=== PATIENT | female | born 1965 | race Caucasian/White ===

== ENCOUNTER 2021-09-17 11:30 | Inpatient (IN) | payer OTHER, SELFPAY ==
[2021-09-17] VITALS (17 sets, daily range): BP systolic 109–140; BP diastolic 63–84; PULSE 95–121; RESP 15–25; TEMP 36.3–37.6; O2SAT 93–98; BMI 25.7
--- NOTE | 2021-09-17 11:50 | W.ED.ABDPA2 ---
HPI - Abdominal Pain General: Chief Complaint: Nausea/Vomiting/Diarrhea Stated Complaint: N/V, ABD PAIN Time Seen by Provider: 09/17/21 11:30 History of Present Illness: HPI narrative: 56-year-old female presents emergency room with abdominal pain nausea vomiting. She is not any hematocrit Kizzier melena. No hematemesis. She denies any dysuria urgency or frequency or flank pain. She denies any previous abdominal surgeries no previous colonoscopies. Localizes the pain to the left lower quadrant. Symptoms began about 3 days ago has waxed and waned but now seems to get a getting progressively worsening. She is not really noticed anything that relieves or worsens the symptoms. MD elicited complaint: abdominal pain Onset (ago): day(s) Pain Consistency: constant Location: LLQ Severity: moderate Quality: cramping Radiation: none Exacerbating factors: nothing Relieving factors: rest Associated Symptoms: Reports anorexia, bloating and GI cramping; Denies belching, change in bowel habits, change in stool character, chills, coffee ground emesis, constipation, diarrhea, dyspepsia, dysuria, excessive flatus, fever(s), heartburn, hematochezia, hematuria, hematemesis, fecal incontinence, loose stools, melena, nausea, poor appetite, syncope and vomiting Review of Systems Const: Denies: fever(s) or chills ENMT: Denies: throat pain, ear or mastoid pain, nasal discharge or nasal congestion Card: Denies: syncope Resp: Denies: dyspnea, productive cough or non-productive cough GI: Reports: bloating and GI cramping; Denies: nausea, vomiting, hematemesis, coffee ground emesis, heartburn, diarrhea, constipation, belching, excessive flatus, fecal incontinence, change in bowel habits, change in stool character, hematochezia or melena : Denies: dysuria or hematuria Skin/Breast: Denies: rash or pruritus Physical Exam Const: COMMON NORMALS: no acute distress GENERAL APPEARANCE: cooperative and comfortable ORIENTATION/CONSCIOUSNESS: Yes awake, Yes oriented to person, Yes oriented to place and Yes oriented to time HENMT: COMMON NORMALS: normocephalic, atraumatic and hearing grossly normal bilaterally HEAD & SCALP: normocephalic and atraumatic Neck/C-Spine: COMMON NORMALS: no JVD Resp: COMMON NORMALS: normal respiratory effort, No retractions, No use of accessory muscles and clear to auscultation bilaterally AUSCULTATION: clear to auscultation bilaterally Cardio: COMMON NORMALS: no JVD, regular rate, regular rhythm and No murmurs present (Cardio) RATE: regular rate RHYTHM: regular rhythm GI: AUSCULTATION: Yes Hypoactive bowel sounds present PALPATION: Yes Tenderness to palpation present (GI) Details: LLQ Extremity: COMMON NORMALS: normal to inspection, capillary refill normal, no clubbing, cyanosis or edema, no calf tenderness and no pedal edema Neuro: SENSORIUM/ORIENTATION: Yes oriented to person, Yes oriented to place and Yes oriented to time Skin: COMMON NORMALS: no rashes or lesions noted GENERAL SKIN EXAM: no rashes or lesions noted Course Vital Signs: Vital signs: Vital Signs Temperature 99.6 F 09/17/21 11:46 Pulse Rate 112 H 09/17/21 11:46 Respiratory Rate 16 09/17/21 12:56 Blood Pressure 140/82 09/17/21 11:46 Pulse Oximetry 93 09/17/21 12:56 MDM - Abdominal Pain MDM Narrative: Medical decision making narrative: Labs and imaging reviewed. Patient significantly hyponatremic and hypokalemic most concerning CT report reviewed discussed with Dr. Knapp and with Dr. Ross. Will consult hospitalist who will collect correction of electrolytes. Surgical consult based on CT report and abdominal clinical exam findings. Lab Data: Labs: Lab Results 09/17/21 09/17/21 09/17/21 11:56 11:56 11:56 WBC 11.2 10^3/uL H 10 ^3/uL (4.0-10.0) RBC 4.61 10^6/uL 10^6 /uL (4.1-5.3) Hgb 13.7 g/dL g/dL (11.5-15.3) Hct 37.1 % % (37.0-47.0) MCV 80.5 fl L fl (81-99) MCH 29.7 pg pg (28.0-34.0) MCHC 36.9 g/dL H g/dL (30.0-36.0) RDW 11.2 % L % (12.1-15.1) Plt Count 171 10^3/cmm 10^3 /cmm (130-400) MPV 10.4 fL fL (7.4-10.4) Neut % (Auto) 90.7 % % Lymph % (Auto) 3.1 % % Collier % (Auto) 5.7 % % Eos % (Auto) 0.0 % % Baso % (Auto) 0.3 % % Neut # (Auto) 10.12 10^3/uL H 1 0^3/uL (1.8-7.7) Lymph # (Auto) 0.4 10^3/uL L 10^ 3/uL (0.8-4.8) Collier # (Auto) 0.6 10^3/uL 10^3/ uL (0.2-0.9) Eos # (Auto) 0.0 10^3/uL 10^3/ uL (0.0-0.8) Baso # (Auto) 0.0 10^3/uL 10^3/ uL (0.0-0.1) Nucleated RBC % (a uto) 0 % % Nucleated RBCs # 0.0 /100WBC /100W BC PT 13.60 SECONDS SEC ONDS (12.1-14.9) INR 1.01 (0.8-1.2) APTT 30.2 SECONDS SECO NDS (23.9-36.7) Sodium 117 mmol/L L* mmo l/L (136-145) Potassium 2.9 mmol/L L mmol /L (3.5-5.1) Chloride 80 mmol/L L mmol/ L (98-107) Carbon Dioxide 21 mmol/L L mmol/ L (22-29) Anion Gap 18.9 (5-19) BUN 6 mg/dL mg/dL (6-20) Creatinine 0.4 mg/dL L mg/dL (0.5-0.9) GFR Calculation 164.5 mL/min H mL /min (90-130) Glucose 145 mg/dL H mg/dL (65-115) Calculated Osmolal ity 244 mOsm/kg L mOs m/kg (285-295) Calcium 8.4 mg/dL L mg/dL (8.5-10.5) Total Bilirubin 0.7 mg/dL mg/dL (0.15-1.2) AST 26 U/L U/L (0-32) ALT 34 U/L H U/L (0-33) Alkaline Phosphata se 68 IU/L IU/L (35-105) Total Protein 6.5 g/dL L g/dL (6.6-8.7) Albumin 3.4 g/dL L g/dL (3.5-5.2) Globulin 3.1 g/dL g/dL (1.3-4.6) Lipase Urine Color Urine Appearance Urine pH Ur Specific Gravit y Urine Protein Urine Glucose (UA) Urine Ketones Urine Blood Urine Nitrate Urine Bilirubin Urine Urobilinogen Ur Leukocyte Mila ase Urine RBC Urine WBC Ur Squamous Epith Cells Amorphous Sediment Urine Bacteria 09/17/21 09/17/21 11:56 12:01 WBC RBC Hgb Hct MCV MCH MCHC RDW Plt Count MPV Neut % (Auto) Lymph % (Auto) Collier % (Auto) Eos % (Auto) Baso % (Auto) Neut # (Auto) Lymph # (Auto) Collier # (Auto) Eos # (Auto) Baso # (Auto) Nucleated RBC % (a uto) Nucleated RBCs # PT INR APTT Sodium Potassium Chloride Carbon Dioxide Anion Gap BUN Creatinine GFR Calculation Glucose Calculated Osmolal ity Calcium Total Bilirubin AST ALT Alkaline Phosphata se Total Protein Albumin Globulin Lipase 8 U/L L U/L (13-60) Urine Color Yellow (Yellow) Urine Appearance Sl hazy (CLEAR) Urine pH 7 (5-7) Ur Specific Gravit y 1.010 (1.005-1.030) Urine Protein 1+ H (Negative) Urine Glucose (UA) Norm (Normal) Urine Ketones 2+ H (Negative) Urine Blood 3+ H (Negative) Urine Nitrate Negative (Negative) Urine Bilirubin Neg (Negative) Urine Urobilinogen Norm mg/dL mg/dL (Negative) Ur Leukocyte Mila ase Negative (Negative) Urine RBC 10-15 /hpf H /hpf (0-2) Urine WBC 5-10 /hpf H /hpf (0-5) Ur Squamous Epith Cells 15-25 /hpf H /hpf (0-5) Amorphous Sediment Not Reportable Urine Bacteria 1+ /hpf H /hpf (NONE) Discharge Plan Discharge Patient Disposition: Admitted As Inpatient Clinical Impression: Small bowel obstruction, Hypokalemia, Hyponatremia, Ischemia, bowel Condition: Stable Referrals: Eden Poe DO [Primary Care Provider] - Coding Level of Care Code ED Circle Beveler for Chg Fwd Exam Comprehensive
--- NOTE | 2021-09-17 12:05 | CT_ITS ---
WS: [id number] CT ABDOMEN AND PELVIS WITH CONTRAST HISTORY: Nausea and general abdominal pain for 4 days. TECHNIQUE: Imaging performed of the abdomen and pelvis with IV contrast. Single phase imaging of the abdomen. Coronal and sagittal reformats are submitted. All CT scans at [facility] use at [facility] one of these dose optimization techniques: automated exposure control; mA and/or kV adjustment per patient size (includes targeted exams where dose is matched to clinical indication); or iterative re construction. IV CONTRAST: Omnipaque 300; 95 mL IV. Oral contrast: Yes. DLP: 1450.1 mGy.cm COMPARISON: None available. Lower thorax: Lung bases are hyperexpanded from emphysema. 5 mm nodule at the medial RIGHT lung base. Heart is normal size. The distal esophagus is fluid-filled. There is a fluid-filled hiatal hernia in the stomach is dilated with fluid. Liver/biliary system: Normal size with no intrahepatic dilatation. Gallbladder: Normal. No gallstones or wall thickening. No pericholecystic fluid. Pancreas: Normal size pancreas and pancreatic duct. No adjacent inflammation. Spleen: Normal size spleen. No mass or infarct. Adrenal glands: Normal. Right kidney: Normal. Left kidney: Normal. Aorta: Mild atherosclerosis with no aneurysm. Lymphadenopathy: There are several small mesenteric and RIGHT lower quadrant lymph nodes. Free fluid: Small amount of free fluid in the pelvis. There is mesenteric edema and a small amount of fluid along the RIGHT paracolic gutter. GI tract: Acute inflammatory process in the RIGHT lower quadrant. Significant amount of edema with fl uid and a few small lymph nodes and abnormal loop of bowel. High density within this dilated fluid-fi lled loop of distal small bowel bowel. The largest component measures 12 mm which may be a calcificat ion. This is a very elongated abnormal loop of distal small bowel there are numerous fluid-filled loo ps of small bowel with wall thickening. There is at least a partial moderate small bowel obstruction. A dilated appendix as a separate structure is not identified. The colon is collapsed. Abdominal wall: Fat containing umbilical hernia. Pelvis: Urinary bladder is well distended. Small amount of free fluid is present within the pelvis. S everal small calcifications within the LEFT ovary. Bones: Unremarkable. CT/CT abdomen pelvis w con* [id number] IMPRESSION: 1. Abnormal loop of distal small bowel with wall thickening, edema and increas ed density which may be calcification. Moderate obstruction in the small bowel due to the abnormal distal loop. Then appendix as a separate structure is not i dentified. This could be acute appendicitis with an appendicolith and secondary findings of adjacent enteritis. The inflammatory changes are greater than norm ally seen for acute appendicitis and the small bowel loop is very elongated. Co nsider other etiologies of an abnormal distal small bowel such as acute inflamm ation of the Meckel's diverticulum, volvulus or neoplasm. Early changes of isch emia are suspected. Surgical evaluation strongly recommended. 2. There is extensive inflammation in the RIGHT lower quadrant with a small am ount of free fluid in the pelvis. Notified Dandre Grossman DO at 09/17/2021 12:45 PM. Not available. Message le ft for Dr. Grossman to review the report as soon as possible.
[2021-09-17] MEDS: iohexol 300 mg/mL 100 mL Btl IV (12:16)
[2021-09-17 12:18] LABS: Basophils % 0.3 %; Hematocrit 37.1 % (37.0-47.0); Hemoglobin 13.7 g/dL (11.5-15.3); Lymphocytes # 0.4 10^3/uL (0.8-4.8); Lymphocytes % 3.1 %; Mean Corpuscular HGB Conc 36.9 g/dL (30.0-36.0); Mean Corpuscular Hemoglobin 29.7 pg (28.0-34.0); Mean Corpuscular Volume 80.5 fl (81-99); Mean Platelet Volume 10.4 fL (7.4-10.4); Monocytes # 0.6 10^3/uL (0.2-0.9); Monocytes % 5.7 %; Neutrophils # 10.12 10^3/uL (1.8-7.7); Neutrophils % 90.7 %; Nucleated Red Blood Cells % 0 %; Platelet Count 171 10^3/cmm (130-400); Red Blood Count 4.61 10^6/uL (4.1-5.3); Red Cell Distribution Width 11.2 % (12.1-15.1); White Blood Count 11.2 10^3/uL (4.0-10.0)
[2021-09-17 12:34] LABS: Alanine Aminotransferase 34 U/L (0-33); Albumin Level 3.4 g/dL (3.5-5.2); Alkaline Phosphatase 68 IU/L (35-105); Anion Gap 18.9 (5-19); Aspartate Amino Transferase 26 U/L (0-32); Blood Urea Nitrogen 6 mg/dL (6-20); Calcium 8.4 mg/dL (8.5-10.5); Carbon Dioxide 21 mmol/L (22-29); Chloride 80 mmol/L (98-107); Globulin 3.1 g/dL (1.3-4.6); Glomerular Filtration Rate 164.5 mL/min (90-130); Glucose 145 mg/dL (65-115); Osmolality Calculated 244 mOsm/kg (285-295); Total Bilirubin 0.7 mg/dL (0.15-1.2); Total Protein 6.5 g/dL (6.6-8.7)
[2021-09-17] MEDS: ondansetron 2 mg/ML SDV 2 mL 4 MG IVP (12:53)
[2021-09-17] MEDS: morphine 4 mg/mL SDV 1 mL IVP (12:56)
[2021-09-17] MEDS: sodium chloride 0.9% 1,000 ML 999 ML IV (13:01)
[2021-09-17 13:02] LABS: Potassium 2.9 mmol/L (3.5-5.1); Sodium 117 mmol/L (136-145)
[2021-09-17 13:05] LABS: Add Urine Microscopic? YES; Bilirubin Urine Neg (Negative); Blood Urine 3+ (Negative); Glucose Urine UA Norm (Normal); Ketones Urine 2+ (Negative); Leukocyte Esterase Urine Negative (Negative); Nitrate Urine Negative (Negative); Protein Urine 1+ (Negative); Urine Appearance SL Hazy (CLEAR); Urine Color Yellow (Yellow); Urobilinogen Urine Norm (Negative); pH Urine 7 (5-7)
[2021-09-17 13:06] LABS: Add Urine Culture? No; Bacteria Urine 1+ /hpf; Squamous Epithelial Cell Urine 15-25 /hpf (0-5)
[2021-09-17] MEDS: LORazepam 2 mg/mL INJ 1 mL IVP (13:06)
[2021-09-17 13:16] LABS: Lipase 8 U/L (13-60)
[2021-09-17 13:21] LABS: INR 1.01 (0.8-1.2); Partial Thromboplastin Time 30.2 SECONDS (23.9-36.7)
[2021-09-17] MEDS: promethazine 25 mg/mL SDV 1 mL IM (13:29)
[2021-09-17] MEDS: piperacillin-tazobactam 3.375 GM in sodium chloride 0.9% (plus) 50 ML IV ×2 (13:29→20:47)
--- NOTE | 2021-09-17 13:42 | PC.PHAR ---
pts family verified the pts medications
[2021-09-17] MEDS: lidocaine 1% 5 ML in potassium chloride premix 100 ML 25 ML IV (13:44)
--- NOTE | 2021-09-17 13:51 | PC.NURSE ---
pt placed on continuous spo2, nibp, and cm.
[2021-09-17 14:10] LABS: Lactic Sepsis W/Reflex 1.7 mmol/L (0.5-2.2)
--- NOTE | 2021-09-17 14:22 | P.HP_ITS ---
Providers/Chief Complaint Primary Care Provider: Eden Poe DO Chief Complaint: N/V, ABD PAIN History of Present Illness Vicky Katz is a 56 year old female with no significant past medical history presented to the hospital with chief complaint recurrent nausea and vomiting. Son is at the bedside who has been giving me most of the information. Patient has been given morphine and Ativan she is very drowsy. She is curre ntly on 2 L nasal cannula. 200 cc of bilious content obtained when NG tube was placed. No active drainage noted in the container. Friday stating that her symptoms started on Friday which got worse over the weekend, she probably had more than 20 episodes of emesis. Low-grade fever was noticed. No diarrhea. No one else in the home is sick with similar symptoms no signs or symptoms of COVID-19. In the ER CT abdomen pelvis consistent with SBO and early changes of ischemic colon, lactic acid is normal, white count 11.2, on examination there is peritonitis signs mostly on lower quadrants no active guarding or rigidity noted however she had received opioids and Ativan She has been given Zosyn, IV fluids, Dr. Knapp has been consulted Patient never had EGD or colonoscopy before, no previous history of surgeries, no family history of colon cancer, father had small cell lung cancer, she is an corporate accountant by profession, has been leading a normal healthy life, does not smoke on daily basis Review of Systems General: Reports: ROS unobtainable due to medical condition (Patient received morphine and Ativan, not able to provide much review of sy) Medications/Allergies Home Medications Medication Instructions Recorded Confirmed Last Taken Type activated charcoal 500 mg PO ONCE 09/17/21 09/17/21 09/15/21 History cetirizine [All Day Allergy 10 mg PO DAILY PRN 09/17/21 09/17/21 Unknown History (cetirizine)] Allergies Allergy/AdvReac Type Severity Reaction Status Date / Time No Known Allergies Allergy Verified 09/17/21 11:46 PFSH Acute PFSH: Medical History Atypical chest pain Surgical History Hx of tonsillectomy Family History Other Family history non-contributory Social History Smoking and tobacco status: never smoked Alcohol intake: never Housing: House Vitals/I&O/Wt Last Vital Signs Temp 99.6 F 09/17/21 11:46 Pulse 108 H 09/17/21 13:52 Resp 22 H 09/17/21 13:52 BP 109/72 09/17/21 13:52 Pulse Ox 93 09/17/21 13:52 Weight last 48 hrs Weight 65.771 kg Physical Exam Narrative: EXAM NARRATIVE: Semi-Curry position Patient appears stated age Looks dehydrated Currently on 2 L Abdomen is nondistended, tender to touch periumbilical area lower quadrants however no active guarding or rigidity noted Patient is arousable to verbal command Nonfocal neuro exam Drowsy On 2 L nasal cannula Sinus tachycardia Blood pressure stable Data : 09/17/21 11:56 09/17/21 11:56 A&P Assessment and plan (1) Small bowel obstruction: Status: Acute (2) Hypokalemia: Status: Acute (3) Hyponatremia: Status: Acute (4) Ischemia, bowel: Status: Acute Additional A&P Information Small bowel obstruction Dr. Knapp consulted Fluid aroundRight paracolic gutter, mesenteric lymphadenopathy, calcification left ovary, fat-containing umbilical hernia Hypokalemia, hyponatremia related to recurrent emesis N.p.o. NG to suction 300 cc obtained Continue IV fluids Patient looks dehydrated, sinus tachycardia noted Acute appendicitis not ruled out Continue Zosyn Full code N.p.o. DVT prophylaxis SCDs Attestations Medical Necessity Statement*: More than 2 midnights anticipated Time Spent in Patient Care: Greater than 35 minutes Coding Level of Care Code Acute Strainer Cleaner for [facility] Fwd Diagnoses Small bowel obstruction K56.609 Hypokalemia E87.6 Hyponatremia E87.1 Ischemia, bowel K55.9
--- NOTE | 2021-09-17 14:23 | XR_ITS ---
WS: [id number] PORTABLE CHEST HISTORY: ng tube placement COMPARISON: [id number] Nasogastric tube is been placed. The proximal port is just below the GE junction. The distal tip is i n the LEFT upper abdomen. Mild interstitial thickening throughout both lungs. Patient is rotated to the RIGHT. No pneumothorax or pleural effusion. Cardiac size: Normal. Mediastinum/Aorta: Mild increase in soft tissue in the RIGHT paratracheal region is probably due to t he position and semiupright projection. No osseous abnormality seen. XR/XR chest 1V portable [id number] IMPRESSION: 1. Interval placement of nasogastric tube in good position. 2. No pneumonia. Chronic emphysema.
[2021-09-17] MEDS: sodium chloride 0.9% 1,000 ML 100 ML IV (15:18)
--- NOTE | 2021-09-17 15:18 | PC.NURSE ---
WHILE AT BEDSIDE PT IS IN NAD. PT DENIES ANY NEEDS AT THIS TIME.
--- NOTE | 2021-09-17 16:44 | P.CONIM_ITS ---
Providers/Reason For Consult Consulting Physician/Specialty*: General Surgery Raymundo Knapp MD Reason for Consult*: Abdominal pain, abnormal CAT scan. Attending Physician: Chasidy Costa MD Primary Care Provider: Eden oPe DO History of Present Illness History of Present Illness Vicky Katz is a 56 year old female who says she was in her normal state of health until Friday night (3 days ago) when she awoke with generalized abdominal pain and started having multiple episodes of nausea/vomiting. The symptoms continued the following day. She never did see any evidence of hematemesis. She says her friend had recommended she drink some activated charcoal because that helps me when I get sick. She did that but it did not help her symptoms. Her stool turned dark in color as a result but she continued to have primarily nausea and vomiting symptoms. She seems to think the last time she vomited was last night, but she says the abdominal pain became more intense today. She says it is primarily in the lower abdomen now. She told me she has not had any fevers or chills, but the hospitalist indicated there may have been a low-grade fever. She has not had a bowel movement for a couple of days but says she continues to pass small amounts of flatus. She has no history of abdominal surgery. She has no family history of intestinal neoplasia or inflammatory bowel disease. She has not swallowed any foreign bodies that she knows of. The patient came to the emergency room today and a CAT scan showed evidence of an inflammatory process in the lower abdomen/right lower quadrant. There is a long tubular structure with what was felt to be a calcification within it, but it was not felt to represent the appendix. The radiologist felt that there may be some early evidence of bowel ischemia and the inflammatory change was greater than that expected with appendicitis. Review of Systems General: Reports: 10 or more systems reviewed and unremarkable except in HPI and below Const: Denies: fever(s) or chills GI: Reports: abdominal pain, nausea and vomiting; Denies: hematemesis Medications/Allergies Home Medications Medication Instructions Recorded Confirmed Last Taken Type activated charcoal 500 mg PO ONCE 09/17/21 09/17/21 09/15/21 History cetirizine [All Day Allergy 10 mg PO DAILY PRN 09/17/21 09/17/21 Unknown History (cetirizine)] Allergies Allergy/AdvReac Type Severity Reaction Status Date / Time No Known Allergies Allergy Verified 09/17/21 11:46 Current Medications Generic Name Dose Route Start Last Admin Trade Name Po PRN Reason Stop Dose Admin Lidocaine HCl 5 ml/ Potassium 105 mls @ 25 mls/hr 09/17/21 13:15 09/17/21 13:44 Chloride IV 09/17/21 21:14 25 mls/hr Q4H CLAUDIA Administration PFSH Acute PFSH: Medical History Atypical chest pain Surgical History Hx of tonsillectomy Family History Other Family history non-contributory Social History Smoking and tobacco status: never smoked Alcohol intake: never Housing: House Vitals/I&O/Wt Last Vital Signs Temp 99.6 F 09/17/21 11:46 Pulse 108 H 09/17/21 13:52 Resp 22 H 09/17/21 13:52 BP 109/72 09/17/21 13:52 Pulse Ox 93 09/17/21 13:52 Weight last 48 hrs Weight 145 lb Physical Exam Narrative: EXAM NARRATIVE: The patient was encountered in her room in the emergency department. She has a nasogastric tube and Fraire catheter in place. She does not appear to be in any acute distress. She does seem a little bit sedated after receiving pain medication and sedation. Her son is at her bedside. The pupils seem equal. No carotid bruits are heard. The lungs are clear. The heart seems regular but she is borderline tachycardic. The abdomen is soft but has very few bowel sounds. She does have most of her tenderness in the lower abdomen and perhaps even more so to the right side of midline. The extremities reveal no edema. Neurologically the patient appears to be grossly intact. Urinary Catheter Management^: Fraire: Cath Placed During This Visit: yes Urinary Catheter Date of Insertion: 09/17/21 Urinary Catheter Time of Insertion: 16:18 Data Imaging^: CT Abd/Pel: Radiologist's impression: CT abdomen/pelvis 09/17/2021 IMPRESSION: 1. Abnormal loop of distal small bowel with wall thickening, edema and increased density which may be calcification. Moderate obstruction in the small bowel due to the abnormal distal loop. Then appendix as a separate structure is not identified. This could be acute appendicitis with an appendicolith and secondary findings of adjacent enteritis. The inflammatory changes are greater than normally seen for acute appendicitis and the small bowel loop is very elongated. Consider other etiologies of an abnormal distal small bowel such as acute inflammation of the Meckel's diverticulum, volvulus or neoplasm. Early changes of ischemia are suspected. Surgical evaluation strongly recommended. 2. There is extensive inflammation in the RIGHT lower quadrant with a small amount of free fluid in the pelvis. A&P Assessment and plan (1) Abnormal CT scan, pelvis: CAT scan reviewed. I agree that the CAT scan has somewhat of an abnormal appearance to it. If she does have an appendicolith within the appendix, it somewhat difficult to see the structure connecting with the cecum and it appears to be quite lengthy, extending across the midline to the left side. I suspect the patient has more of an ileus as opposed to an obstructive process. I told the patient I am not absolutely certain what she/we are dealing with here. We have discussed appendicitis, Meckel's diverticulitis, inflammatory bowel disease, etc. We discussed conservative management versus surgical exploration to make sure we know what is going on and to treat anything that we can surgically. We discussed surgical risks of bleeding, infection, internal organ injury, possible need for removal of structures, etc. The patient seems to understand and would like to proceed with surgical exploration tonight. The patient has been n.p.o. today and already has a nasogastric tube and Fraire catheter in place. I am going to make arrangements for urgent exploration tonight. Status: Acute (2) Right lower quadrant pain: Status: Acute (3) Ischemia, bowel: Possible, based on CAT scan findings, but the patient's lactate is normal. Status: Acute (4) Hyponatremia: Status: Acute Consult Attestations Medical Necessity Statement: See admitting service's notation. Coding Level of Care Code Acute Retail Support Specialist for [facility] Diagnoses Abnormal CT scan, pelvis R93.5 Right lower quadrant pain R10.31 Ischemia, bowel K55.9 Hyponatremia E87.1
--- NOTE | 2021-09-17 17:10 | ANES.PREANE2 ---
Pre-Anesthetic Assessment Pre-Anesthetic Assessment: Height/Weight: Height 1.6 m Weight 65.771 kg Temp Pulse Resp BP Pulse Ox 99.6 F 108 H 22 H 109/72 93 09/17/21 11:46 09/17/21 13:52 09/17/21 13:52 09/17/21 13:52 09/17/21 13:52 Was Beta Stephanie taken within 24 hours: N/A Was Clonidine taken within 24 hours: N/A Social: Social History: Tobacco and No alcohol Exam: Pre-Anes Outpt Exam: alert, oriented x 3, clear to auscultation bilaterally and regular rate & rhythm Airway: Submandibular: WNL Cervical ROM: WNL MP: 2 Dentition: False History/ROS: No significant history except as noted Pulmonary: Pulmonary: None reported CV/HEM: CV/HEM: None reported Comments: METS > 4 : : None reported Hepatic: Hepatic: None reported GI: GI: None reported Comments: SBO Metabolic: Metabolic: None reported Musc/skel: Musc/skel: None reported Neuropsych: Neuropsych: None reported Anesthetic Plan: ASA status: 2E Anesthesia: Anesthesia Evaluation and General Other: Risk and benefits discussed. Plan GETA, RSI Risk of > 500 ml blood loss (7ml/kg in children): No Other Pertinent Information: Hypokalemia Hypochloremia S/P 20 mEq infusion of potassium in 1 liter D5 NSS Medications/Allergies Current Medications: Current Medications Generic Name Dose Route Start Last Admin Trade Name Freq PRN Reason Stop Dose Admin Lidocaine HCl 5 ml / Potassium 105 mls @ 25 mls/ hr 09/17/21 13:15 09/17/21 13:44 Chloride IV 09/17/21 21:14 25 mls/hr Q4H CLAUDIA Administration PFSH Anesthesia PFSH: Medical History Atypical chest pain Surgical History Hx of tonsillectomy Family History Other Family history non-contributory Social History Smoking and tobacco status: never smoked Alcohol intake: never Housing: House Data Anesthesia CBC & Chem 7: 09/17/21 11:56 09/17/21 11:56 Other Labs: Laboratory Results - last 48 hr 09/17/21 09/17/21 09/17/21 11:56 11:56 11:56 WBC 11.2 H RBC 4.61 Hgb 13.7 Hct 37.1 MCV 80.5 L MCH 29.7 MCHC 36.9 H RDW 11.2 L Plt Count 171 MPV 10.4 Neut % (Auto) 90.7 Lymph % (Auto) 3.1 Kinney % (Auto) 5.7 Eos % (Auto) 0.0 Baso % (Auto) 0.3 Neut # (Auto) 10.12 H Lymph # (Auto) 0.4 L Kinney # (Auto) 0.6 Eos # (Auto) 0.0 Baso # (Auto) 0.0 Nucleated RBC % (auto) 0 Nucleated RBCs # 0.0 PT 13.60 INR 1.01 APTT 30.2 Sodium 117 L* Potassium 2.9 L Chloride 80 L Carbon Dioxide 21 L Anion Gap 18.9 BUN 6 Creatinine 0.4 L GFR Calculation 164.5 H Glucose 145 H Calculated Osmolality 244 L Lactic Acid Calcium 8.4 L Total Bilirubin 0.7 AST 26 ALT 34 H Alkaline Phosphatase 68 Total Protein 6.5 L Albumin 3.4 L Globulin 3.1 Lipase Urine Color Urine Appearance Urine pH Ur Specific [place] Urine Protein Urine Glucose (UA) Urine Ketones Urine Blood Urine Nitrate Urine Bilirubin Urine Urobilinogen Ur Leukocyte Esterase Urine RBC Urine WBC Ur Squamous Epith Cells Amorphous Sediment Urine Bacteria 09/17/21 09/17/21 09/17/21 11:56 12:01 13:43 WBC RBC Hgb Hct MCV MCH MCHC RDW Plt Count MPV Neut % (Auto) Lymph % (Auto) Kinney % (Auto) Eos % (Auto) Baso % (Auto) Neut # (Auto) Lymph # (Auto) Kinney # (Auto) Eos # (Auto) Baso # (Auto) Nucleated RBC % (auto) Nucleated RBCs # PT INR APTT Sodium Potassium Chloride Carbon Dioxide Anion Gap BUN Creatinine GFR Calculation Glucose Calculated Osmolality Lactic Acid 1.7 Calcium Total Bilirubin AST ALT Alkaline Phosphatase Total Protein Albumin Globulin Lipase 8 L Urine Color Yellow Urine Appearance Sl hazy Urine pH 7 Ur Specific [place] 1.010 Urine Protein 1+ H Urine Glucose (UA) Norm Urine Ketones 2+ H Urine Blood 3+ H Urine Nitrate Negative Urine Bilirubin Neg Urine Urobilinogen Norm Ur Leukocyte Esterase Negative Urine RBC 10-15 H Urine WBC 5-10 H Ur Squamous Epith Cells 15-25 H Amorphous Sediment Not Reportable Urine Bacteria 1+ H Cardiac Studies: No Data to Display
--- NOTE | 2021-09-17 17:12 | PC.NURSE ---
INFORMED FROM [facility] VIA PC TO LEAVE SECOND DOSE OF ZOYSN FOR SURGERY TO DECIDE WHEN TO ADM.
--- NOTE | 2021-09-17 18:07 | ANE.PACU2 ---
Inpatient post-anesthesia follow up: Vital signs: Temperature 99.6 F Pulse Rate 119 Respiratory Rate 23 Blood Pressure 120/83 Pulse Oximetry 96 Oxygen Delivery Me thod Nasal Cannula Oxygen Flow Rate 2 Fraction of Inspir ed Oxygen
--- NOTE | 2021-09-17 18:29 | SUR.PREOP ---
1750 PT TO OPS BAY 8 PT AWAKE ALERT NG CLAMPED TAPED TO RT NARE, IV TO LT AC#18 WITH NS, WITH GOOD BLOOD RETURN AND FLUSHED EASILY RUNNING PER GRAVITY AT FAST RATE PER DR SILVERIO'S VERBAL ORDER. ABD SOFT , BILAT SCDS PLACED , PT LOWER DENTURES OUT AND IN DENTURE CUP, UPPERS ARE REAL. SIDE RAILS UP X 2 BRAKE ON. 1806 FAMILY LEFT SHORTLY AFTER ARRIVAL, PT TO OR PER CART.
--- NOTE | 2021-09-17 19:03 | P.OP_ITS ---
Operative Report Date of procedure: September 17, 2021 Pre-op Diagnosis: Pelvic inflammatory process, possible bowel ischemia. Post-op Diagnosis: Gangrenous, perforated appendicitis. Procedure Done: Exploratory laparotomy with appendectomy. Specimens removed/disposition: 1. Aerobic and anaerobic cultures of peritoneal fluid. 2. Appendix. Surgeon: Raymundo Knapp Anesthesia: General Estimated blood loss (mL): 10 Complications: None. Condition: stable Disposition: PACU Procedure: The patient was brought to the operating room and was placed in a supine position on the operating room table. A Fraire catheter and nasogastric tube had already been inserted preoperatively. General endotracheal anesthesia was induced. The abdomen was prepped and draped in a sterile fashion. A midline incision was carried out from the lower epigastrium around the umbilicus into the lower midline. Cautery was used to divide the subcutaneous tissue and the midline fascia and the peritoneal cavity was entered. Some light yellow purulent appearing peritoneal fluid was encountered. Palpation into the pelvis revealed a early phlegmon near the midline. After some of this had been broken up with blunt dissection the peritoneal fluid was sent for aerobic and anaerobic cultures with Gram stain. The abdomen was briefly irrigated. An Jason wound retractor was used for exposure and wound protection. The cecum was identified by palpation and the terminal ileum was inspected. Other than having some inflammatory peel and some hemorrhagic changes no obvious abnormalities were found. The appendix was found posteriorly extending towards the left side of the abdomen. It was clearly gangrenous and was perforated near the tip. The appendix was mobilized using blunt dissection with some cautery to maintain hemostasis. The base of the appendix appeared relatively healthy and was ligated with 2 separate ligatures of 2-0 Vicryl. The gangrenous appendix wa s excised. The appendiceal stump was briefly cauterized and the cecum was returned to the abdomen. All quadrants were then extensively irrigated with saline. No other obvious abnormalities were found or palpated anywhere. The nasogastric tube was confirmed to be within the gastric lumen. Both ovaries by palpation appeared atrophic. The uterus was small and unremarkable. After the irrigant from the peritoneal cavity returned clear, the Jason wound retractor was removed. The cecum was again identified and the closed appendiceal stump appeared healthy. The omentum was brought back over the small bowel. Attention was directed towards closure. The midline fascia was closed using a running looped #1 PDS. The subcutaneous tissue was extensively irrigated and the skin was approximated using skin yovany. A sterile dressing was placed over the wound and the patient was eventually taken to the recovery area in stable condition postoperatively.
--- NOTE | 2021-09-17 19:23 | PM.PACU ---
Documented by User: Preston Craig CRNA 09/17/21 19:23 PACU note PACU note: VSS, Good respiratory effort, report to NATURAL RESOURCES PROFESSOR
--- NOTE | 2021-09-17 19:31 | ANE.PACU2 ---
Inpatient post-anesthesia follow up: Airway intact: Yes Vital signs: Temperature 97.4 F Pulse Rate 99 Respiratory Rate 22 Blood Pressure 123/80 Pulse Oximetry 97 Oxygen Delivery Me thod Nasal Cannula Oxygen Flow Rate 4 Fraction of Inspir ed Oxygen Hydration adequate: Yes Nausea and vomiting: No Pain level: 3 Mental status: Baseline
--- NOTE | 2021-09-17 19:32 | SUR.PREOP ---
191 PT TO PACU SLEEPY WITH GOOD RESP EFFORT, BILAT LUNGS CLEAR , MONITOR SR, NO ECTOPY NOTED, ABD SOFT WITH LARGE VERTICAL DRESSING NOTED D/I YEAGER TO DEPENDAND DRAINAGE WITH STATLOCK TO RT THIGH, NO TENSION TO CATHETER NOTED WITH YELLOW URINE TO TUBING AND BAG. IV NS 800ML PER GRAVITY AT MOD RATE. SCDS ON BILATERALLY AND WORKING. 1934 PT AWAKE AND SHAKES HEAD NO TO PAIN AND NAUSEA, NG TUBE REMAINS SECURED TO RT NARE AND CLAMPED.
--- NOTE | 2021-09-17 20:19 | SUR.PHASEI ---
1999 PT TO FLOOR PER BED , PT DAUGHTER AND SON AT BEDSIDE, PT AWAKE ALERT WHEN MOVED BY 3 NURSING STAFF TO BED, PT ASKING FLOOR NURSE IF SHE COULD HAVE HER NG OUT, PT DENIES PAIN AT THIS TIME, ABD SF
--- NOTE | 2021-09-17 20:21 | SUR.PHASEI ---
1999 CONTINUED ABDOMEN SOFT DRESSING D/I YEAGER PATENT WITH CLEAR YELLOW URINE NOTED HANDOFF AT BEDSIDE WITH GRAEME MENDEZ.
[2021-09-17] MEDS: ketorolac 30 mg/mL INJ IVP (20:45)
[2021-09-17] MEDS: pantoprazole 40 mg SDV IVP (20:46)
[2021-09-17] MEDS: dextrose 5%-ns + KCl 40 40 MEQ/1,000 ML BAG 100 MEQ IV (20:46)
[2021-09-17] MEDS: heparin 5,000 unit/mL INJ 1 mL 5000 UNIT SUBCUT (20:47)
--- NOTE | 2021-09-17 22:06 | PC.NURSE ---
i reported high pulse 106 to nurse
--- NOTE | 2021-09-17 23:36 | PC.NURSE ---
2000 Pt to 273 from PACU. Awake and talking. Oriented to room. Family present. Reports Pain to Abd incision. 5:10. Pain regimen explained. Abd dressing d/i. VS stable. No distress. NG to right nare in place at 2nd black jorge. No suction ordered.
--- NOTE | 2021-09-17 23:41 | PC.NURSE ---
2100 Pt arouses easily. Pain at 3:10 to abd. Abd dressing D/I. Ice chips given. Incentive spirometry used.
--- NOTE | 2021-09-17 23:42 | PC.NURSE ---
2200 VS stable. Easily awakens. Abd dressing D/I.
--- NOTE | 2021-09-17 23:42 | PC.NURSE ---
2300 VS stable. Awakens easily. No distress. Abd dressing D/I.
[2021-09-18] VITALS (7 sets, daily range): BP systolic 99–138; BP diastolic 64–84; PULSE 97–109; RESP 16–18; TEMP 36.7–37.4; O2SAT 91–107
--- NOTE | 2021-09-18 00:01 | PC.NURSE ---
i reported high pulse 103 to nurse
--- NOTE | 2021-09-18 01:18 | PC.NURSE ---
0115 Resting in bed. Easily arouses. No reports of pain. Abd dressing D/I.
--- NOTE | 2021-09-18 02:22 | PC.NURSE ---
0215 Resting in bed. Resp e/u Dressing D/I. No distress.
[2021-09-18] MEDS: ketorolac 30 mg/mL INJ IVP ×3 (02:54→17:05)
[2021-09-18] MEDS: piperacillin-tazobactam 3.375 GM in sodium chloride 0.9% (plus) 50 ML IV ×3 (05:00→21:04)
--- NOTE | 2021-09-18 05:44 | PC.NURSE ---
0400 Resting in bed. Awakens easily. Abd Dressing D/I. No requests.
--- NOTE | 2021-09-18 05:44 | PC.NURSE ---
0520 Awake in bed. Pt repositions self. Turn, cough, deep breathe as instructed. Ice chips given.
[2021-09-18 06:12] LABS: Basophils % 0.2 %; Hematocrit 37.1 % (37.0-47.0); Hemoglobin 13.3 g/dL (11.5-15.3); Lymphocytes # 0.4 10^3/uL (0.8-4.8); Lymphocytes % 3.9 %; Mean Corpuscular HGB Conc 35.8 g/dL (30.0-36.0); Mean Corpuscular Hemoglobin 29.8 pg (28.0-34.0); Mean Platelet Volume 10.9 fL (7.4-10.4); Monocytes # 0.5 10^3/uL (0.2-0.9); Monocytes % 4.7 %; Neutrophils % 90.9 %; Nucleated Red Blood Cells % 0 %; Platelet Count 166 10^3/cmm (130-400); Red Blood Count 4.47 10^6/uL (4.1-5.3); Red Cell Distribution Width 11.4 % (12.1-15.1); White Blood Count 11.2 10^3/uL (4.0-10.0)
--- NOTE | 2021-09-18 06:17 | PM.PN ---
Subjective Subjective: Interval history: Status post exploratory laparotomy with appendectomy Patient has stayed afebrile, soft blood pressure this morning On 2 L nasal cannula Sinus tachycardia Vitals/I&O/Wt Last Vital Signs Temp 98.4 F 09/18/21 05:52 Pulse 97 09/18/21 05:52 Resp 16 09/18/21 05:52 BP 99/66 09/18/21 05:52 Pulse Ox 95 09/18/21 05:52 09/17/21 09/17/21 09/18/21 14:59 22:59 06:59 Intake Total 190 / 190 50 / 240 Output Total 1410 / 1410 Balance -1220 / -1220 50 / -1170 Weight last 48 hrs Weight 65.771 kg Weight 65.771 kg Physical Exam Narrative: EXAM NARRATIVE: Patient is awake Nonfocal neuro exam S1, S2 Sinus tachycardia Abdominal dressing in place Currently on 2 L nasal cannula no acute respite distress Clinically looks dehydrated Urinary Catheter Management^: Fraire: Cath Placed During This Visit: yes Reason for Continuing Indwelling Catheter: Perioperative Use in Selected Surgeries Urinary Catheter Date of Insertion: 09/17/21 Urinary Catheter Time of Insertion: 16:18 Data : 09/19/21 04:30 09/19/21 04:30 A&P Assessment and plan (1) Right lower quadrant pain: Status: Acute (2) Abnormal CT scan, pelvis: Status: Acute (3) Small bowel obstruction: Status: Acute (4) Hypokalemia: Status: Acute (5) Hyponatremia: Status: Acute (6) Ischemia, bowel: Status: Acute Plan Postop day 1 Status post exploratory laparotomy and appendectomy CBC does not show severe leukocytosis Afebrile Incentive spirometry Continue antibiotics Sinus tachycardia likely secondary to dehydration continue IV fluid Check D-dimer Acute hypoxia requiring 2 L of cannula, wean off to room air Electrolyte imbalance, BMP is pending Diet to be advanced as per general surgery recommendations Full code N.p.o. DVT prophylaxis Heparin Attestations Medical Necessity Statement*: Continue monitoring after surgery Time Spent in Patient Care: 15mins Coding Level of Care Code Acute Freight Elevator Erector for Talisha Fwindra Medical Decision Making Moderate Complexity Diagnoses Right lower quadrant pain R10.[address] scan, pelvis R93.5 Small bowel obstruction K56.609 Hypokalemia E87.6 Hyponatremia E87.1 Ischemia, bowel K55.9
[2021-09-18 06:26] LABS: Alanine Aminotransferase 20 U/L (0-33); Albumin Level 2.6 g/dL (3.5-5.2); Alkaline Phosphatase 52 IU/L (35-105); Anion Gap 16.1 (5-19); Aspartate Amino Transferase 16 U/L (0-32); Blood Urea Nitrogen 5 mg/dL (6-20); Calcium 8.1 mg/dL (8.5-10.5); Carbon Dioxide 19 mmol/L (22-29); Chloride 96 mmol/L (98-107); Glomerular Filtration Rate 164.5 mL/min (90-130); Glucose 142 mg/dL (65-115); Magnesium 1.7 mg/dL (1.7-2.3); Osmolality Calculated 264 mOsm/kg (285-295); Potassium 4.1 mmol/L (3.5-5.1); Sodium 127 mmol/L (136-145); Total Bilirubin 0.3 mg/dL (0.15-1.2); Total Protein 5.6 g/dL (6.6-8.7)
[2021-09-18] MEDS: lactated ringers 1,000 ML 999 ML IV (06:43)
[2021-09-18] MEDS: heparin 5,000 unit/mL INJ 1 mL 5000 UNIT SUBCUT ×2 (07:54→21:03)
[2021-09-18] MEDS: pantoprazole 40 mg SDV IVP ×2 (07:54→17:05)
[2021-09-18] MEDS: sodium chloride 0.9% 1,000 ML 100 ML IV ×2 (07:54→17:05)
--- NOTE | 2021-09-18 12:13 | P.PN_ITS ---
Subjective Subjective: Interval history: The patient says she already feels better than she did preoperatively. She is not passing any flatus yet. She was wondering if she could get the nasogastric tube removed. Vitals/I&O/Wt Last Vital Signs Temp 98.3 F 09/18/21 08:49 Pulse 109 H 09/18/21 10:38 Resp 18 09/18/21 10:38 BP 138/84 09/18/21 08:49 Pulse Ox 93 09/18/21 10:38 09/17/21 09/18/21 09/18/21 22:59 06:59 14:59 Intake Total 190 / 240 50 / 240 4205 / 4205 Output Total 1410 / 1410 630 / 630 Balance -1220 / -1170 50 / -1170 3575 / 3575 Weight last 48 hrs Weight 145 lb Weight 145 lb Physical Exam Narrative: EXAM NARRATIVE: Rounds are rare. The midline dressing is dry. The patient remains afebrile. Urine output appears adequate. Urinary Catheter Management: Fraire: Cath Placed During This Visit: yes Reason for Continuing Indwelling Catheter: Perioperative Use in Selected Surgeries Urinary Catheter Date of Insertion: 09/17/21 Urinary Catheter Time of Insertion: 16:18 Data : 09/18/21 05:05 09/18/21 05:05 Micro: Microbiology 09/18/21 07:35 Blood Culture - Preliminary Blood SPECIMEN COLLECTED 09/18/21 07:28 Blood Culture - Preliminary Blood SPECIMEN COLLECTED A&P Assessment and plan (1) Perforated appendicitis: Status post exploratory laparotomy with removal of a gangrenous, perforated appendix on 09/17/2021. We discussed the nasogastric tube and how it's probably preventing the patient from becoming more distended with her postoperative ileus. She seems to understand but wants to discuss removal of this later today. I was intending to leave her Fraire catheter in place until probably tomorrow when she hopefully will be a little bit more mobile. Continue IV antibiotics. Status: Acute Attestations Medical Necessity Statement*: See admitting service's notation. Coding Level of Care Code Acute Electronic Court Recorder for [facility] Diagnoses Perforated appendicitis K35.32
--- NOTE | 2021-09-18 17:14 | PC.NURSE ---
patient ambulating in [place] with staff. patient still not passing gas at this time.
[2021-09-18] MEDS: phenol oral Spray 177 mL 5 SPRAY MUCOUS MEM (21:02)
[2021-09-18] MEDS: lanolin oint 7 gm 1 APPLIC TOPICAL (21:33)
--- NOTE | 2021-09-18 23:16 | PC.NURSE ---
1930 Dr. Knapp at bedside.
--- NOTE | 2021-09-18 23:20 | PC.NURSE ---
2100 Sitting up in bed. ICe chips given. Abd Pain 2:10. No distress. Abd dressing D/I.
[2021-09-19] VITALS (8 sets, daily range): BP systolic 126–143; BP diastolic 73–82; PULSE 97–108; RESP 16–20; TEMP 36.7–37.2; O2SAT 92–96
[2021-09-19] MEDS: ketorolac 30 mg/mL INJ IVP ×3 (01:00→17:23)
--- NOTE | 2021-09-19 02:25 | PC.NURSE ---
0100 Pt reports sinus drainage causing her to cough which is causing her abd incision to hurt. Encouraged splinting when coughing and pain med given as ordered. Helped pt reposition in bed for comfort.
--- NOTE | 2021-09-19 02:26 | PC.NURSE ---
0200 Pt sleeping on right side. Resp e/u. No distress.
[2021-09-19] MEDS: piperacillin-tazobactam 3.375 GM in sodium chloride 0.9% (plus) 50 ML IV ×3 (03:40→20:49)
[2021-09-19] MEDS: sodium chloride 0.9% 1,000 ML 100 ML IV ×2 (03:40→14:49)
[2021-09-19 05:27] LABS: Basophils % 0.1 %; Hemoglobin 10.1 g/dL (11.5-15.3); Lymphocytes # 1.1 10^3/uL (0.8-4.8); Lymphocytes % 12.7 %; Mean Corpuscular HGB Conc 34.8 g/dL (30.0-36.0); Mean Corpuscular Hemoglobin 29.8 pg (28.0-34.0); Mean Corpuscular Volume 85.5 fl (81-99); Monocytes # 0.6 10^3/uL (0.2-0.9); Monocytes % 7.5 %; Neutrophils # 6.79 10^3/uL (1.8-7.7); Neutrophils % 79.5 %; Nucleated Red Blood Cells % 0 %; Platelet Count 172 10^3/cmm (130-400); Red Blood Count 3.39 10^6/uL (4.1-5.3); Red Cell Distribution Width 11.7 % (12.1-15.1); White Blood Count 8.6 10^3/uL (4.0-10.0)
[2021-09-19 05:56] LABS: Anion Gap 10.2 (5-19); Blood Urea Nitrogen 5 mg/dL (6-20); Calcium 7.2 mg/dL (8.5-10.5); Carbon Dioxide 22 mmol/L (22-29); Chloride 103 mmol/L (98-107); Glomerular Filtration Rate 229.3 mL/min (90-130); Glucose 89 mg/dL (65-115); Osmolality Calculated 271 mOsm/kg (285-295); Potassium 3.2 mmol/L (3.5-5.1); Sodium 132 mmol/L (136-145)
--- NOTE | 2021-09-19 07:15 | XR_ITS ---
WS: [id number] KUB, portable AP supine, 09/19/2021 Clinical Data: ileus Comparison: None. Findings: No abnormal intraabdominal masses or calcifications are seen there is dilatation of the small bowel l oops in the left upper quadrant. There is a relative decrease of gas in the right lower quadrant. Mid line abdominal yovany are seen. There is a monitor lead over the right lateral abdominal wall. XR/XR KUB portable [id number] Impression: 1. Dilatation of small bowel loops in left upper quadrant which could represent an obstruction or severe ileus. 2. Decrease in gas in right side of the abdomen.
--- NOTE | 2021-09-19 09:06 | P.PN_ITS ---
Subjective Subjective: Interval history: The patient's nasogastric tube was removed last night. I discovered that the tube had not been hooked up for most of the day and upon hooking it back to [facility] there was minimal return and it was bothering the patient's throat and sinuses so it was removed. She feels like her abdomen is rumbling but still has not passed flatus. She is getting her appetite back. Vitals/I&O/Wt Last Vital Signs Temp 98.6 F 09/19/21 07:35 Pulse 97 09/19/21 07:35 Resp 16 09/19/21 07:35 BP 126/73 09/19/21 07:35 Pulse Ox 92 09/19/21 07:35 09/18/21 09/19/21 09/19/21 22:59 06:59 14:59 Intake Total 1068.333 / 6273.333 1000 / 6273.333 Output Total 500 / 1480 Balance 568.333 / 4793.333 1000 / 4793.333 Weight last 48 hrs Weight 145 lb Weight 145 lb Physical Exam Narrative: EXAM NARRATIVE: Bowel sounds are a little bit more active today. The midline dressing was removed and the incision looks good. Urinary Catheter Management: Fraire: Cath Placed During This Visit: yes Reason for Continuing Indwelling Catheter: Accurate Measurement of Urinary Output in Critically Ill Patients Urinary Catheter Date of Insertion: 09/17/21 Urinary Catheter Time of Insertion: 16:18 Data : 09/19/21 04:30 09/19/21 04:30 Micro: Microbiology 09/18/21 07:35 Blood Culture - Preliminary Blood NEGATIVE TO DATE 09/18/21 07:28 Blood Culture - Preliminary Blood NEGATIVE TO DATE 09/17/21 18:35 Gram Stain - Final Peritoneal Fluid A&P Assessment and plan (1) Perforated appendicitis: Status post exploratory laparotomy with removal of a gangrenous, perforated appendix on 09/17/2021. Continue IV antibiotics. Gram stain of peritoneal fluid shows gram-negative rods. Discontinue Fraire catheter. I am going to allow the patient a clear liquid diet but have instructed her to take it slowly. Ambulate twice daily. Status: Acute Attestations Medical Necessity Statement*: See admitting service's notation. Coding Level of Care Code Acute Personal Banking Assistant for Talisha Barron Diagnoses Perforated appendicitis K35.32
[2021-09-19] MEDS: heparin 5,000 unit/mL INJ 1 mL 5000 UNIT SUBCUT ×2 (09:52→20:46)
[2021-09-19] MEDS: pantoprazole 40 mg SDV IVP ×2 (09:52→17:23)
[2021-09-19] MEDS: lidocaine 1% 5 ML in potassium chloride premix 100 ML 25 ML IV (09:52)
[2021-09-19] MEDS: morphine 4 mg/mL SDV 1 mL IVP ×3 (11:25→20:48)
--- NOTE | 2021-09-19 13:02 | P.PN_ITS ---
Subjective Subjective: Interval history: This morning patient diet has been advanced to clear liquid, KUB requested this morning which showed left upper quadrant ileus however right-sided improved patient is also noticing mild discomfort in left upper quadrant She is able to tolerate liquid diet liquid diet no active emesis, NG removed yesterday by Dr. Knapp Patient was encouraged to walk in the hallway Fraire catheter removed today Vitals/I&O/Wt Last Vital Signs Temp 98.6 F 09/19/21 07:35 Pulse 97 09/19/21 07:35 Resp 16 09/19/21 11:25 BP 126/73 09/19/21 07:35 Pulse Ox 92 09/19/21 07:35 09/18/21 09/19/21 09/19/21 22:59 06:59 14:59 Intake Total 1068.333 / 5273.333 1000 / 6273.333 Output Total 500 / 1480 800 / 800 Balance 568.333 / 3793.333 1000 / 4793.333 -800 / -800 Weight last 48 hrs Weight 65.771 kg Physical Exam Narrative: EXAM NARRATIVE: Patient resting comfortably NG removed Abdomen soft, bowel sound present, [place] without any drainage, nontender no signs of hyperemia Patient looks dehydrated S1, S2 Nonfocal neuro exam EOMI, PERRLA Urinary Catheter Management: Fraire: Cath Placed During This Visit: yes, but has since been removed by the nurse Reason for Continuing Indwelling Catheter: Decision to DC Catheter Urinary Catheter Date of Insertion: 09/17/21 Urinary Catheter Time of Insertion: 16:18 Date Urinary Catheter Removed: 09/19/21 Time Urinary Catheter Discontinued: 10:03 Data : 09/19/21 04:30 09/19/21 04:30 Micro: Microbiology 09/17/21 18:35 Gram Stain - Final Peritoneal Fluid Body Fluid Culture - Preliminary Gram Negative Rods 09/18/21 07:35 Blood Culture - Preliminary Blood NEGATIVE TO DATE 09/18/21 07:28 Blood Culture - Preliminary Blood NEGATIVE TO DATE A&P Assessment and plan (1) Perforated appendicitis: Status: Acute (2) Right lower quadrant pain: Status: Acute (3) Abnormal CT scan, pelvis: Status: Acute (4) Small bowel obstruction: Status: Acute (5) Hypokalemia: Status: Acute (6) Hyponatremia: Status: Acute Plan Diet has been advanced by general surgery today to clear liquids Patient is tolerating her diet She was encouraged to ambulate Pain well managed on current opiate regimen Continue Zosyn For the diet to be advanced with Dr. Knapp If no active emesis will discontinue IV fluids She is full code DVT prophylaxis Heparin Attestations Medical Necessity Statement*: Diet to be advanced by general surgery: Plan to discharge in next 24 to 30 hours Coding Level of Care Code Acute Senior Billing Consultant for g Fwd History Problem Focused Exam Problem Focused Medical Decision Making Low Complexity Diagnoses Perforated appendicitis K35.32 Right lower quadrant pain R10.[address] scan, pelvis R93.5 Small bowel obstruction K56.609 Hypokalemia E87.6 Hyponatremia E87.1 Time Spent (min) 15
[2021-09-19 14:11] LABS: Magnesium 1.8 mg/dL (1.7-2.3)
[2021-09-20] VITALS: BP 119/71; PULSE 105; RESP 20; TEMP 37.2; O2SAT 93
[2021-09-20] MEDS: sodium chloride 0.9% 1,000 ML 100 ML IV ×2 (00:57→09:19)
[2021-09-20] MEDS: ketorolac 30 mg/mL INJ IVP (02:04)
[2021-09-20 04:00] VITALS: BP 112/69; PULSE 104; RESP 20; TEMP 36.9; O2SAT 94
[2021-09-20] MEDS: piperacillin-tazobactam 3.375 GM in sodium chloride 0.9% (plus) 50 ML IV ×2 (04:11→11:14)
[2021-09-20 05:37] LABS: Basophils % 0.2 %; Eosinophils % 0.1 %; Hematocrit 28.8 % (37.0-47.0); Hemoglobin 9.9 g/dL (11.5-15.3); Lymphocytes # 1.2 10^3/uL (0.8-4.8); Lymphocytes % 14.4 %; Mean Corpuscular HGB Conc 34.4 g/dL (30.0-36.0); Mean Corpuscular Hemoglobin 30.4 pg (28.0-34.0); Mean Corpuscular Volume 88.3 fl (81-99); Mean Platelet Volume 10.1 fL (7.4-10.4); Monocytes # 0.9 10^3/uL (0.2-0.9); Monocytes % 10.6 %; Neutrophils # 6.06 10^3/uL (1.8-7.7); Neutrophils % 73.8 %; Nucleated Red Blood Cells % 0 %; Platelet Count 241 10^3/cmm (130-400); Red Blood Count 3.26 10^6/uL (4.1-5.3); Red Cell Distribution Width 11.7 % (12.1-15.1); White Blood Count 8.2 10^3/uL (4.0-10.0)
[2021-09-20 06:03] LABS: Anion Gap 13.3 (5-19); Blood Urea Nitrogen 4 mg/dL (6-20); Calcium 7.2 mg/dL (8.5-10.5); Carbon Dioxide 21 mmol/L (22-29); Chloride 100 mmol/L (98-107); Glomerular Filtration Rate 229.3 mL/min (90-130); Glucose 84 mg/dL (65-115); Magnesium 1.7 mg/dL (1.7-2.3); Osmolality Calculated 268 mOsm/kg (285-295); Potassium 3.3 mmol/L (3.5-5.1); Sodium 131 mmol/L (136-145)
--- NOTE | 2021-09-20 07:52 | PM.PN ---
Subjective Subjective: Interval history: The patient continues to feel well. She is now passing flatus. She is tolerating clear liquids and would like to try some solid food. Vitals/I&O/Wt Last Vital Signs Temp 98.5 F 09/20/21 04:00 Pulse 104 H 09/20/21 04:00 Resp 20 H 09/20/21 04:00 BP 112/69 09/20/21 04:00 Pulse Ox 94 09/20/21 04:00 09/19/21 09/20/21 09/20/21 22:59 06:59 14:59 Intake Total 550 / 2805 1150 / 2805 Output Total 100 / 900 Balance 450 / 1905 1150 / 1905 Physical Exam Narrative: EXAM NARRATIVE: The incision looks good. Bowel sounds are present. She has the expected amount of tenderness. Urinary Catheter Management: Fraire: Cath Placed During This Visit: yes, but has since been removed by the nurse Reason for Continuing Indwelling Catheter: Decision to DC Catheter Urinary Catheter Date of Insertion: 09/17/21 Urinary Catheter Time of Insertion: 16:18 Date Urinary Catheter Removed: 09/19/21 Time Urinary Catheter Discontinued: 10:03 Data : 09/20/21 05:00 09/20/21 05:00 Micro: Microbiology 09/17/21 18:35 Gram Stain - Final Peritoneal Fluid Anaerobic Culture - Preliminary Body Fluid Culture - Preliminary Gram Negative Rods 09/18/21 07:35 Blood Culture - Preliminary Blood NEGATIVE TO DATE 09/18/21 07:28 Blood Culture - Preliminary Blood NEGATIVE TO DATE A&P Assessment and plan (1) Perforated appendicitis: Status post exploratory laparotomy with removal of a gangrenous, perforated appendix on 09/17/2021. Continue IV antibiotics. Culture results still pending. Soft GI diet. Continue activity. Status: Acute Attestations Medical Necessity Statement*: Patient requires continued inpatient care for intravenous antibiotics following laparotomy for perforated appendicitis. Coding Level of Care Code Acute Infrastructure Analyst for Talisha Barron Diagnoses Perforated appendicitis K35.32
[2021-09-20 08:00] VITALS: BP 117/68; PULSE 105; RESP 18; TEMP 36.6; O2SAT 94
[2021-09-20] MEDS: magnesium oxide 400 mg tablet PO (09:19)
[2021-09-20] MEDS: heparin 5,000 unit/mL INJ 1 mL 5000 UNIT SUBCUT (09:19)
[2021-09-20] MEDS: potassium chloride ER 20 mEq Tablet 40 MEQ PO (09:19)
[2021-09-20] MEDS: pantoprazole 40 mg SDV IVP (09:20)
[2021-09-20] MEDS: HYDROcodone-acetaminophen 5-325 mg Tablet PO ×2 (09:32→15:33)
[2021-09-20 12:00] VITALS: BP 111/66; PULSE 100; RESP 18; TEMP 36.6; O2SAT 94
--- NOTE | 2021-09-20 15:09 | P.DS_ITS ---
Discharge Providers Date of Admission: 09/17/21 13:17 Date of Discharge: September 20, 2021 Attending Provider at Admission: Chasidy Costa MD Attending Provider at Discharge: Chasidy Costa MD Primary Care Provider: Eden Poe DO Diagnoses at Discharge Discharge Diagnosis (1) Perforated appendicitis: Status: Acute Reason for Visit Reason for Visit: N/V, ABD PAIN Hospital Course Hospital Course This Note has been written by Dr. Knapp Vicky Katz is a 56 year old female who says she was in her normal state of health until Friday night (3 days ago) when she awoke with generalized abdominal pain and started having multiple episodes of nausea/vomiting.? The symptoms continued the following day.? She never did see any evidence of hematemesis.? She says her friend had recommended she drink some activated charcoal because that helps me when I get sick. ? She did that but it did not help her symptoms.? Her stool turned dark in color as a result but she continued to have primarily nausea and vomiting symptoms.? She seems to think the last time she vomited was last night, but she says the abdominal pain became more intense today.? She says it is primarily in the lower abdomen now.? She told me she has not had any fevers or chills, but the hospitalist indicated there may have been a low-grade fever. ? She has not had a bowel movement for a couple of days but says she continues to pass small amounts of flatus.? She has no history of abdominal surgery.? She has no family history of intestinal neoplasia or inflammatory bowel disease.? She has not swallowed any foreign bodies that she knows of. The patient came to the emergency room and a CAT scan showed evidence of an inflammatory process in the lower abdomen/right lower quadrant.? There is a long tubular structure with what was felt to be a calcification within it, but it was not felt to represent the appendix.? The radiologist felt that there may be some early evidence of bowel ischemia and the inflammatory change was greater than that expected with appendicitis. Hospital course Patient went to the OR from emergency department on 09/17 status post exploratory laparotomy with removal of gangrenous perforated appendix, biopsy did not show any sign of malignancy, culture positive for E. coli which is pansensitive, patient tolerated the procedure very well, postoperatively her nasogastric tube was discontinued and she was able to tolerate her diet she had 1 bowel movement, no active nausea or vomiting. She will be discharged on 09/20 on Augmentin, outpatient follow-up with Dr. Knapp for staple removal. Physical Exam Narrative: EXAM NARRATIVE: patient resting comfortably Eating her lunch Abdomen soft, bowel sound present, [place] without any drainage, nontender no signs of hyperemia Patient looks hydrated S1, S2 Nonfocal neuro exam EOMI, PERRLA Urinary Catheter Management: Fraire: Cath Placed During This Visit: yes, but has since been removed by the nurse Reason for Continuing Indwelling Catheter: Decision to DC Catheter Urinary Catheter Date of Insertion: 09/17/21 Urinary Catheter Time of Insertion: 16:18 Date Urinary Catheter Removed: 09/19/21 Time Urinary Catheter Discontinued: 10:03 Discharge Data Studies Completed and Pending Completed Studies During Hospitalization Category Date Time Status CT abdomen pelvis w con* [id number] Stat Cat Scan 09/17/21 12:05 Completed CXRP [XR chest 1V portable [id number]] Stat Exams 09/17/21 14:23 Completed XR KUB portable [id number] Routine Exams 09/19/21 07:15 Completed Pathology: Surgical [PTH] Routine Pth 09/17/21 19:52 Completed Pending at discharge Category Date Time Status Anaerobic Culture Routine Lab 09/17/21 18:35 Results Basic Metabolic Panel AM LABS Lab 09/21/21 04:00 Ordered Blood Culture Stat Lab 09/18/21 07:35 Results Body Fluid Culture & GS Routine Lab 09/17/21 18:35 Results Complete Blood Count w/Auto AM LABS Lab 09/21/21 04:00 Ordered Radiology Impressions Abdomen/Pelvis CT 09/17/21 12:05 IMPRESSION: 1. Abnormal loop of distal small bowel with wall thickening, edema and increased density which may be calcification. Moderate obstruction in the small bowel due to the abnormal distal loop. Then appendix as a separate structure is not identified. This could be acute appendicitis with an appendicolith and secondary findings of adjacent enteritis. The inflammatory changes are greater than normally seen for acute appendicitis and the small bowel loop is very elongated. Consider other etiologies of an abnormal distal small bowel such as acute inflammation of the Meckel's diverticulum, volvulus or neoplasm. Early changes of ischemia are suspected. Surgical evaluation strongly recommended. 2. There is extensive inflammation in the RIGHT lower quadrant with a small amount of free fluid in the pelvis. Notified Dandre L Horstman, DO at 09/17/2021 12:45 PM. Not available. Message left for Dr. Grossman to review the report as soon as possible. Chest X-Ray 09/17/21 14:23 IMPRESSION: 1. Interval placement of nasogastric tube in good position. 2. No pneumonia. Chronic emphysema. KUB X-Ray 09/19/21 07:15 Impression: 1. Dilatation of small bowel loops in left upper quadrant which could represent an obstruction or severe ileus. 2. Decrease in gas in right side of the abdomen. Laboratory Results WBC 8.2 10^3/uL (4.0-10.0) 09/20/21 05:00 RBC 3.26 10^6/uL (4.1-5.3) L 09/20/21 05:00 Hgb 9.9 g/dL (11.5-15.3) L 09/20/21 05:00 Hct 28.8 % (37.0-47.0) L 09/20/21 05:00 MCV 88.3 fl (81-99) 09/20/21 05:00 MCH 30.4 pg (28.0-34.0) 09/20/21 05:00 MCHC 34.4 g/dL (30.0-36.0) 09/20/21 05:00 RDW 11.7 % (12.1-15.1) L 09/20/21 05:00 Plt Count 241 10^3/cmm (130-400) D 09/20/21 05:00 MPV 10.1 fL (7.4-10.4) 09/20/21 05:00 Neut % (Auto) 73.8 % 09/20/21 05:00 Lymph % (Auto) 14.4 % 09/20/21 05:00 [place] % (Auto) 10.6 % 09/20/21 05:00 Eos % (Auto) 0.1 % 09/20/21 05:00 Baso % (Auto) 0.2 % 09/20/21 05:00 Neut # (Auto) 6.06 10^3/uL (1.8-7.7) 09/20/21 05:00 Lymph # (Auto) 1.2 10^3/uL (0.8-4.8) 09/20/21 05:00 [place] # (Auto) 0.9 10^3/uL (0.2-0.9) 09/20/21 05:00 Eos # (Auto) 0.0 10^3/uL (0.0-0.8) 09/20/21 05:00 Baso # (Auto) 0.0 10^3/uL (0.0-0.1) 09/20/21 05:00 Nucleated RBC % (auto) 0 % 09/20/21 05:00 Nucleated RBCs # 0.0 /100WBC 09/20/21 05:00 PT 13.60 SECONDS (12.1-14.9) 09/17/21 11:56 INR 1.01 (0.8-1.2) 09/17/21 11:56 APTT 30.2 SECONDS (23.9-36.7) 09/17/21 11:56 Sodium 131 mmol/L (136-145) L 09/20/21 05:00 Potassium 3.3 mmol/L (3.5-5.1) L 09/20/21 05:00 Chloride 100 mmol/L (98-107) 09/20/21 05:00 Carbon Dioxide 21 mmol/L (22-29) L 09/20/21 05:00 Anion Gap 13.3 (5-19) 09/20/21 05:00 BUN 4 mg/dL (6-20) L 09/20/21 05:00 Creatinine 0.3 mg/dL (0.5-0.9) L 09/20/21 05:00 GFR Calculation 229.3 mL/min (90-130) H 09/20/21 05:00 Glucose 84 mg/dL (65-115) 09/20/21 05:00 Calculated Osmolality 268 mOsm/kg (285-295) L 09/20/21 05:00 Lactic Acid 1.7 mmol/L (0.5-2.2) 09/17/21 13:43 Calcium 7.2 mg/dL (8.5-10.5) L 09/20/21 05:00 Magnesium 1.7 mg/dL (1.7-2.3) 09/20/21 05:00 Total Bilirubin 0.3 mg/dL (0.15-1.2) 09/18/21 05:05 AST 16 U/L (0-32) 09/18/21 05:05 ALT 20 U/L (0-33) 09/18/21 05:05 Alkaline Phosphatase 52 IU/L (35-105) 09/18/21 05:05 Total Protein 5.6 g/dL (6.6-8.7) L 09/18/21 05:05 Albumin 2.6 g/dL (3.5-5.2) L 09/18/21 05:05 Globulin 3.0 g/dL (1.3-4.6) 09/18/21 05:05 Lipase 8 U/L (13-60) L 09/17/21 11:56 Urine Color Yellow (Yellow) 09/17/21 12:01 Urine Appearance Sl hazy (CLEAR) 09/17/21 12:01 Urine pH 7 (5-7) 09/17/21 12:01 Ur Specific [place] 1.010 (1.005-1.030) 09/17/21 12:01 Urine Protein 1+ (Negative) H 09/17/21 12:01 Urine Glucose (UA) Norm (Normal) 09/17/21 12:01 Urine Ketones 2+ (Negative) H 09/17/21 12:01 Urine Blood 3+ (Negative) H 09/17/21 12:01 Urine Nitrate Negative (Negative) 09/17/21 12:01 Urine Bilirubin Neg (Negative) 09/17/21 12:01 Urine Urobilinogen Norm mg/dL (Negative) 09/17/21 12:01 Ur Leukocyte Esterase Negative (Negative) 09/17/21 12:01 Urine RBC 10-15 /hpf (0-2) H 09/17/21 12:01 Urine WBC 5-10 /hpf (0-5) H 09/17/21 12:01 Ur Squamous Epith Cells 15-25 /hpf (0-5) H 09/17/21 12:01 Amorphous Sediment Not Reportable 09/17/21 12:01 Urine Bacteria 1+ /hpf (NONE) H 09/17/21 12:01 Vitals Last Vital Signs Temp 97.8 F 09/20/21 12:00 Pulse 100 09/20/21 12:00 Resp 18 09/20/21 12:00 BP 111/66 09/20/21 12:00 Pulse Ox 94 09/20/21 12:00 Discharge Plan Discharge Patient Disposition: Home Condition: Stable Prescriptions: New hydrocodone-acetaminophen 5-325 mg tablet 1 - 2 tab PO Q5H PRN (Reason: pain) Qty: 30 0RF Augmentin 875-125 mg tablet 1 tab PO BID Qty: 15 0RF Continued All Day Allergy (cetirizine) 10 mg Tablet 10 mg PO DAILY PRN (Reason: Allergy Symptoms) 0RF Discontinued activated charcoal 250 mg Tablet 500 mg PO ONCE 0RF Discharge Orders: Discharge Order (Routine); Ordered 09/20/21 Ordered By: Raymundo Knapp Referrals: Raymundo Knapp MD [Physician] - 09/25/21 10:15 am (Nursing: Please call Dr. Knapp's office ([phone]) and make an appt. for the patient to be seen next week.) Eden Poe DO [Primary Care Provider] - 09/24/21 11:00 am (Will be seen by Samia Narvaez DO due to scheduling ) Discharge Diet: Advance as tolerated Discharge Activity: Limit activity as instructed Patient Instructions: Hydrocodone/Acetaminophen (By mouth), Amoxicillin (By mouth), Open Appendectomy (GEN), Opioid Safety Activity Restrictions/Additional Instructions: Appt. to see Dr. Knapp next week as above. [place] # [phone] and Augmentin #15 Rxs as written -- electronically sent. OK to shower at home. No lifting over 20 lbs., no repetetive bending,twisting, etc. Ok to go up and down stairs if needed. Ambulate regularly. Discharge Attestations Time Spent in Discharge Care*: less than 30 min Quality Metrics Clinical Quality Measures [ No reported AMI, CVA or VTE this stay] Coding Level of Care Code Acute Chg FW DC note Diagnoses Perforated appendicitis K35.32
[2021-09-20 16:00] VITALS: BP 156/88; PULSE 107; RESP 20; TEMP 36.7; O2SAT 94
[2021-09-20 18:06] VITALS: BP 156/88; PULSE 107; RESP 20; TEMP 36.7; O2SAT 94
== END 2021-09-20 18:09 | disposition home or self-care (01) | DRG 339 ==
LOC: ER 13:36 → ER IP 15:45 → MEDSURG 18:20
PROVIDERS: Surgery; Admitting Provider Internal Medicine; Emergency Provider Family Medicine; PCP Family Medicine; Visit Provider Internal Medicine
PROC: 0DTJ0ZZ Resection of Appendix, Open Approach (ICD-10-PCS; CPT 49000; principal; 2021-09-17 17:30)
DX: K35.32 Acute appendicitis with perforation, localized peritonitis, and gangrene, without abscess (principal); E87.1 Hypo-osmolality and hyponatremia; E87.6 Hypokalemia; B96.20 Unspecified Escherichia coli [E. coli] as the cause of diseases classified elsewhere
CPT/HCPCS: 36415; 51702; 71045; 74018; 74177; 80048; 80053; 81001; 83605; 83690; 83735; 85025; 85610; 85730; 87040; 87070; 87075; 87077; 87186; 87205; 88304; 96365; 96366; 96367; 96372; 96375; 99285; C9113; J0330; J0690; J1100; J1644; J1885; J2060; J2270; J2405; J2543; J2550; J2704; J2710; J3010; J3480; J3490; J7030; Q9967

== ENCOUNTER → 2023-06-01 13:46 | Outpatient (BNVA) | payer OTHER, SELFPAY | PROVIDERS: PCP Family Medicine; Visit Provider Emergency Medicine | DX: R39.9 Unspecified symptoms and signs involving the genitourinary system (principal); J01.00 Acute maxillary sinusitis, unspecified; I10 Essential (primary) hypertension | CPT/HCPCS: 81000; 87086 ==